=== PATIENT | male | born 1940 | race Caucasian/White ===

== ENCOUNTER 2016-09-18 14:18 | Observation (INO) ==
[2016-09-18] MEDS ORDERED: ONDANSETRON 4 MG/2 ML VIAL IV PRN (14:30)
[2016-09-18] MEDS ORDERED: ACETAMINOPHEN 325 MG TABLET PO PRN (14:30)
--- NOTE | 2016-09-18 16:37 | Ultrasound Report ---
Exam: Carotid ultrasound Date: 09/18/2016 Comparison: None Technique: Duplex scans of the carotid and vertebral arteries using B-mode/Goldman scale imaging and Doppler spectral analysis and color flow. Reason: Subacute infarction Findings: The right ICA measures 4.6 mm in diameter and the left ICA measures 4.4 mm in diameter. Color-flow documented in the visualized arteries. The peak systolic velocities are as follows: Right CCA: 80.7 cm/s Right ICA: 212.0 cm/s Right ECA: 145.4 cm/s Left CCA: 93.7 cm/s Left ICA: 100.6 cm/s Left ECA: 145.8 cm/s The peak systolic ICA/CCA velocity ratios are as follows: 2.6 on the right and 1.1 on the left. Antegrade flow is present in both vertebral arteries. Impression:[50-69% stenosis in right ICA. Less than 50% stenosis in left ICA with heterogeneous plaque formation. Antegrade flow in both vertebral arteries.] The Society of Radiologists in Ultrasound consensus conference criteria was used. The Ultrasound images were captured and stored. PROCEDURE INTERPRETED AT [facility] DEPARTMENT OF RADIOLOGY Final Report Signed by: Dr. Arabella Conley
[2016-09-18] MEDS: SODIUM CHLORIDE 0.9% 1,000 ML IV SCH (17:34)
--- NOTE | 2016-09-18 17:34 | Family Practice History&Phys ---
Assessment and Plan (1) Paresthesia of left upper extremity Status: Acute Assessment and plan: For something something we will get neurology in the morning on the MRI morning as well. Checking lab tonight Current Visit: Yes (2) CVA (cerebral vascular accident) Status: Acute Assessment and plan: 417 7: As noted above we will get lab and neurology involved. Continuing on current medications Current Visit: Yes (3) HTN (hypertension) Status: Chronic Assessment and plan: 09/18/2016: Stable at present Current Visit: Yes Qualifiers: Hypertension type: essential hypertension Qualified Code(s): I10 - Essential (primary) hypertension (4) Hypercholesterolemia Status: Chronic Assessment and plan: 09/18/2016: Check lipids outpatient Current Visit: Yes (5) COPD (chronic obstructive pulmonary disease) Status: Chronic Current Visit: Yes Qualifiers: COPD type: unspecified COPD Qualified Code(s): J44.9 - Chronic obstructive pulmonary disease, unspecified (6) Insomnia Status: Chronic Current Visit: Yes Qualifiers: Insomnia type: primary Qualified Code(s): F51.01 - Primary insomnia (7) Dementia Status: Chronic Current Visit: Yes History of Present Illness Chief complaint: paresthesias to left side History of present illness: Mr. Smith is a 76 year old male Well-known to me. He came in complaining of some left hand and forearm weakness which actually started approximately 2 days ago. It never got better and he was concerned that it may be a stroke. Stated that he was working all all more this Sunday and he got very weak, which was a continuation of general weakness from what may have been a viral illness 20+ days ago. He was working O a lawnmower this Sunday when most of this occurred and his son states that he is just not gotten any better. The numbness and weakness is mostly in the third fourth and fifth digits and at the wrist and slightly in the form. We did do a CT scan today as noted and I am planning on MRI tomorrow. he is alert and oriented I do not appreciate any cranial nerve deficits nor does he have any difficulty with swallowing or coughing. He is very alert and oriented no slurred speech she is right-handed dominant. Patient denies any visual changes, diplopia and he has conjugate gaze. Home Medications Medication Instructions Recorded Confirmed Type Aspirin [Ecotrin] 81 mg PO DAILY 09/18/16 09/18/16 History Atenolol 50 mg PO BID 09/18/16 09/18/16 History Budesonide/Formoterol 160-4.5 2 puffs PO BID 09/18/16 09/18/16 History [Symbicort 160-4.5] Butalb/Acetaminophen/Caffeine 1 each PO Q6HR 09/18/16 09/18/16 History [Grfwsw-Cjsdfebt-Ugia 50-325-40] Montelukast Sodium 10 mg PO DAILY 09/18/16 09/18/16 History Omeprazole 20 mg PO DAILY 09/18/16 09/18/16 History Sertraline [Zoloft] 50 mg PO BEDTIME 09/18/16 09/18/16 History Simvastatin 40 mg PO DAILY 09/18/16 09/18/16 History clonazePAM [Klonopin] 1 tablet PO DAILY 09/18/16 09/18/16 History hydroCHLOROthiazide 12.5 mg PO DAILY 09/18/16 09/18/16 History [Hydrochlorothiazide] Allergies Allergy/AdvReac Type Severity Reaction Status Date / Time amlodipine [From Norvasc] Allergy Unknown Unknown/Unable Verified 09/18/16 16:53 to obtain lisinopril Allergy Unknown Unknown/Unable Verified 09/18/16 16:53 to obtain sulfamethoxazole Allergy Unknown Unknown/Unable Verified 09/18/16 16:35 [From Bactrim] to obtain tramadol [From Ultram] Allergy Unknown Unknown/Unable Verified 09/18/16 16:53 to obtain trimethoprim [From Bactrim] Allergy Unknown Unknown/Unable Verified 09/18/16 16: 35 to obtain - Constitutional Constitutional: Present: as per HPI - EENT Nose, mouth and throat: Absent: dysphagia, neck mass - Cardiovascular Cardiovascular: Absent: chest pain at rest, palpitations - Respiratory Respiratory: Absent: cough, wheezing - Gastrointestinal Gastrointestinal: Absent: abdominal pain - Genitourinary Genitourinary: Absent: difficulty urinating, nocturia - Neurological Neurological: Present: focal weakness, numbness, paresthesias. Absent: abnormal gait - Psychiatric Psychiatric: Absent: anxiety, difficulty concentrating - Endocrine Endocrine: Absent: cold intolerance Medical,Surgical,& Family Hx - Medical History Cardio: History of: Hypertension Psychological: No history of: Anxiety Disorders, ADHD, Behavior Problems, Bipolar Disorder, Depression, Previous Suicide Attempt, Psychiatric/Substance Abuse Tx, Schizophrenia, Violent Behavior, Psychiatric Problems Neurology: History of: Cerebrovascular Accident Respiratory: History of: COPD Musculoskeletal: History of: Amputation (finger) - Surgical History Thoracic Surgeries: Patient denies;: Organ Transplant, Lobectomy Neurologic Surgeries: Patient denies: Neurologic Surgery HEENT Surgeries: Patient denies: Tonsilectomy & Adenoidectomy - Social History Smoking Status: Smoker, status unknown Frequency of Alcohol Use: Frequently Type of Drug Use: None Exam - Constitutional Vitals: Period Temp Pulse Resp BP Sys/Sargent Pulse Ox Last 24 Hr 98.0 F-98.0 F 57-57 16-20 176-176/77-77 98-98 Exam: Generally well developed gentleman he is alert and oriented at this time, so it is HEENT pupils are equal reactive to light extraocular movements are intact neck is supple trachea midline no signs or symptoms of meningitis patient does have dentures upper and lower Cardiovascular rate is regular no gallop or rub 1/6 systolic ejection murmur Lungs clear bilaterally Abdomen soft nondistended Extremities please see note above patient is weak in his left forearm and hand mainly Results - Labs CBC & BMP: 09/18/16 16:50 09/18/16 16:50 Quality Measures - Stroke Symptom Onset Unknown: No
[2016-09-18 18:06] LABS: Basophils # 0.1 10*3/uL (0.0-0.2); Basophils % 1.5 % (0.0-0.8); Eosinophils # 0.1 10*3/uL (0.0-0.87); Eosinophils % 1.6 % (0.00-10.9); Hematocrit 47.8 VOL% (42.0-52.0); Hemoglobin 15.9 GM/DL (14.0-18.0); Immature Granulocytes % 0.3 %; Immature Granulocytes Absolute 0.02 #; Lymphocytes # 1.3 10*3/uL (1.4-4.0); Lymphocytes % 17.4 % (21.2-54.2); Mean Corpuscular HGB Conc 33.3 GM/DL (32-36); Mean Corpuscular Hemoglobin 28 PG (27-34); Mean Corpuscular Volume 84.6 FL (87-102); Mean Platelet Volume 11.4 FL (9.6-12.0); Monocytes # 0.6 10*3/uL (0.11-0.8); Monocytes % 8.5 % (1.7-12.7); Neutrophils # 5.3 10*3/uL (1.4-7.4); Neutrophils % 70.7 % (38.7-73.9); Platelet Count 165 T/CUMM (130-400); Red Blood Count 5.65 MC/CUMM (3.8-5.5); Red Cell Distribution Width 13.3 % (9.3-17.3); White Blood Count 7.5 T/CUMM (4-12)
--- NOTE | 2016-09-18 18:06 | XRay Report ---
Exam: XR orbits for mri Date: 09/18/2016 4:35 PM Comparison: None Indication: Evaluate for metallic foreign body Technique:[3 view orbits] Findings: No metallic foreign body is identified in the orbital location. Impression: No metallic foreign body is identified in the orbital location. PROCEDURE INTERPRETED AT [facility] DEPARTMENT OF RADIOLOGY Final Report Signed by: Dr. Arabella Conley
[2016-09-18 18:27] LABS: Albumin 3.9 G/DL (3.4-5.0); Bilirubin,Total 0.8 MG/DL (0.2-1.0); Calcium 8.9 MG/DL (8.5-10.1); Magnesium 2.2 MG/DL (1.8-2.4); Osmolality,Calculated 278.3 MOS/KG (273-304); Potassium 3.6 MMOL/L (3.5-5.1); Total Protein 7.4 G/DL (6.4-8.3)
[2016-09-18 18:44] LABS: 25 Hydroxy Vitamin D Total 8.3 NG/ML; Folate 5.8 NG/ML (5.4-24.0)
[2016-09-18 18:54] LABS: Free T4 (Free Thyroxine) 1.11 NG/DL (0.76-1.46); Thyroid Stimulating Hormone 1.3 uIU/ml (0.358-3.74)
[2016-09-18] MEDS ORDERED: SERTRALINE 50 MG TABLET PO SCH (21:00)
[2016-09-18] MEDS: ATENOLOL 50 MG TABLET PO SCH (21:48)
[2016-09-18] MEDS: BUDESONIDE/FORMOTEROL 160-4.5 INHALER 6 GM INH SCH (21:48)
[2016-09-18] MEDS: DOCUSATE SODIUM 100 MG CAPSULE PO SCH (21:48)
[2016-09-18] MEDS ORDERED: clonazePAM 0.5 MG TABLET PO SCH (21:55)
[2016-09-19 07:50] LABS: Risk Ratio 4.81; VLDL CHOLESTEROL 26.8 MG/DL
--- NOTE | 2016-09-19 08:15 | EKG Report ---
Stationary ECG Study [facility] Test Date: 09/19/2016 7:23:18 AM Pat Name: Patricia MERCADO Department: Room: 524 Gender: M [employer]bish [employer] Supervisor: FRANCES : 1940 Requested by: Biju Gomez Order Number: [id number] Reading MD: JORGE COSTA Intervals [place] Rate: 53 P: 57 [place]: 227 QRS: -44 QRSD: 146 T: 48 QT: 455 QTc: 439 Interpretive Statements SINUS BRADYCARDIA WITH FIRST-DEGREE AVB AT 53 BPM MARKED LEFT AXIS DEVIATION RIGHT BUNDLE BRANCH BLOCK Electronically Signed On 09-22-16 16:43:14 CDT by JORGE COSTA [email or web address]
[2016-09-19] MEDS: ATENOLOL 50 MG TABLET PO SCH (08:19)
[2016-09-19] MEDS: BUDESONIDE/FORMOTEROL 160-4.5 INHALER 6 GM INH SCH (08:19)
[2016-09-19] MEDS: DOCUSATE SODIUM 100 MG CAPSULE PO SCH (08:19)
[2016-09-19] MEDS ORDERED: hydroCHLOROthiazide 12.5 MG CAPSULE PO SCH (09:00)
[2016-09-19] MEDS ORDERED: PANTOPRAZOLE 40 MG TABLET PO SCH (09:00)
[2016-09-19] MEDS ORDERED: MONTELUKAST 10 MG TABLET PO SCH (09:00)
[2016-09-19] MEDS ORDERED: ASPIRIN EC 81 MG TABLET PO SCH (09:00)
[2016-09-19] MEDS ORDERED: clonazePAM 0.5 MG TABLET PO SCH (09:00)
--- NOTE | 2016-09-19 10:30 | Magnetic Resonance Report ---
MR head/brain wo con Indication: Subacute infarction. Comparison: CT head 09/18/2016 Technique: Using 1.5 Aranza magnet, multisequence multiplanar MR imaging of the brain was performed without the administration of intravenous contrast. Findings: There is no evidence of restricted diffusion. There is no evidence of acute intracranial hemorrhage, mass, or infarction. Ventricular system demonstrates no evidence of acute pathology. Sagittal T1 sequence demonstrates partially empty sella. Blooming bilaterally present within the basal ganglia suggests small calcifications or hemosiderin deposition. Scattered T2/FLAIR signal hyperintensities are noted bilaterally within the periventricular white matter as well as the bilateral centrum semiovale. These are most compatible with microvascular ischemic changes. The basal cisterns appear patent. The arterial flow voids appear intact. The posterior fossa as well as cerebellum demonstrate no evidence of acute pathology. The orbits and globes demonstrate no evidence of acute pathology. The paranasal sinuses and mastoid air cells demonstrate no evidence of significant mucoperiosteal thickening. The calvarium as well as the soft tissues overlying the calvarium demonstrate no evidence of acute pathology. No unexpected areas of enhancement are demonstrated within the brain, meninges, or orbits. Impression: 1. Generalized atrophy is demonstrated. Bilateral nonspecific areas of increased T2/FLAIR signal within the cerebral white matter are favored to reflect microvascular ischemic disease. No acute intracranial pathology is suggested. 09/19/2016 10:23 AM PROCEDURE INTERPRETED AT [facility] DEPARTMENT OF RADIOLOGY Final Report Signed by: Dr. Felix Saldivar
[2016-09-19] MEDS: SODIUM CHLORIDE 0.9% 1,000 ML IV SCH ×2 (14:52→16:49)
--- NOTE | 2016-09-19 15:28 | Neurology Consult Note ---
History of Present Illness History of present illness: Mr. Smith is a 76 year old right-handed white gentleman admitted to the hospital with left ring and little finger numbness and tingling. He reported that over the weekend he used a lot more and work in the backyard and got really exhausted and extremely tired. He reported that it was hot and humid outside that day. Prior to that he had a stomach virus which he kept for last 1 week. Stated that he worked all day Sunday and he got very weak, which was a continuation of general weakness from what may have been a viral illness 20+ days ago. He was working on a lawAsteelower this Sunday when most of this occurred and his son states that he is just not gotten any better. The numbness and weakness is mostly in the third fourth and fifth digits. Patient denies any visual changes, diplopia and he has conjugate gaze. MRI of the brain reveals no acute pathology. It did show a small vessel disease. Home Medications Medication Instructions Recorded Confirmed Type Aspirin [Ecotrin] 81 mg PO DAILY 09/18/16 09/18/16 History Atenolol 50 mg PO BID 09/18/16 09/18/16 History Budesonide/Formoterol 160-4.5 2 puffs PO BID 09/18/16 09/18/16 History [Symbicort 160-4.5] Butalb/Acetaminophen/Caffeine 1 each PO Q6HR 09/18/16 09/18/16 History [Ghvmsq-Skvmorrj-Ngrs 50-325-40] Montelukast Sodium 10 mg PO DAILY 09/18/16 09/18/16 History Omeprazole 20 mg PO DAILY 09/18/16 09/18/16 History Sertraline [Zoloft] 50 mg PO BEDTIME 09/18/16 09/18/16 History Simvastatin 40 mg PO DAILY 09/18/16 09/18/16 History clonazePAM [Klonopin] 1 tablet PO DAILY 09/18/16 09/18/16 History hydroCHLOROthiazide 12.5 mg PO DAILY 09/18/16 09/18/16 History [Hydrochlorothiazide] Allergies Allergy/AdvReac Type Severity Reaction Status Date / Time amlodipine [From [facility]] Allergy Unknown Unknown/Unable Verified 09/18/16 16:53 to obtain lisinopril Allergy Unknown Unknown/Unable Verified 09/18/16 16:53 to obtain sulfamethoxazole Allergy Unknown Unknown/Unable Verified 09/18/16 16:35 [From Bactrim] to obtain tramadol [From Ultram] Allergy Unknown Unknown/Unable Verified 09/18/16 16:53 to obtain trimethoprim [From Bactrim] Allergy Unknown Unknown/Unable Verified 09/18/16 16: 35 to obtain 12 point system: reviewed and no additional remarkable complaints except as stated Medical,Surgical,& Family Hx - Medical History Cardio: History of: Hypertension Psychological: No history of: Anxiety Disorders, ADHD, Behavior Problems, Bipolar Disorder, Depression, Previous Suicide Attempt, Psychiatric/Substance Abuse Tx, Schizophrenia, Violent Behavior, Psychiatric Problems Neurology: History of: Cerebrovascular Accident Respiratory: History of: COPD Musculoskeletal: History of: Amputation (finger) - Surgical History Thoracic Surgeries: Patient denies;: Organ Transplant, Lobectomy Neurologic Surgeries: Patient denies: Neurologic Surgery HEENT Surgeries: Patient denies: Tonsilectomy & Adenoidectomy - Social History Smoking Status: Smoker, status unknown Frequency of Alcohol Use: Frequently Type of Drug Use: None Exam - Constitutional Vitals: Period Temp Pulse Resp BP Sys/Sargent Pulse Ox Last 24 Hr 97 F-98.0 F 56-63 16-20 129-176/67-84 95-98 Exam: GENERAL: Patient is in no acute distress. NECK: Neck is supple. There is no JVD. No carotid bruits present. No thyroid masses. CVS: First and second heart sounds are normal. There is no S3 present. Regular rate and rhythm. RESPIRATORY: Lungs are clear to auscultation without any rales or rhonchi. ABDOMEN: Soft and non-tender. Bowel sounds are present. There is no hepatosplenomegaly. EXT: There is no palpable edema. Peripheral pulses are present. Skin: No rashes Central Nervous system: General: Alert, awake and Oriented x 3 Speech: Fluent Comprehension: Intact and normal Facial expressions: Normal Cranial Nerves: CN1/Olfactory: Normal CN II/ Optic: Normal, Visual Driver unreliable CN III, and : MARIA R & EOMI CN V: Normal & intact CN VII: face is symmetric CNVIII: Normal CN XI/X/XI/XII: Intact and Normal Motor: Bulk and Tone is normal. Strength in the right 5/5 Strength in the left 5/5 Sensory: Grossly intact for all the modalities of PP, LT and temp sense Reflexes: 1+ and symmetrical Cerebellar function: Normal finger to nose and heel to schulz testing. Toes: Equivocal Gait: Normal heel to heel and toe to toe and tandem walk. Results - Labs CBC & BMP: 09/18/16 16:50 09/18/16 16:50 Assessment and Plan (1) Generalized weakness Status: Acute Assessment and plan: This is likely due to exhaustion and dehydration. No evidence of a stroke on the MRI. 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 It needs further workup as an outpatient Continue aspirin a day We will do nerve conduction study/EMG as an outpatient Thank you for the consult Current Visit: Yes Specialty Discharge - Follow Up or Referrals Follow up with: Luan Garcia MD [Physician] - 2 Weeks (schedule NCS/EMG both UE)
[2016-09-19 16:48] VITALS: BP 149/75
--- NOTE | 2016-09-19 16:53 | Discharge Summary ---
Hospital Course - Hospital Course Hospital Course: Patient seen to the hospital with left arm weakness and tingling particularly along the medial aspect of his forearm and fingers. He has had a history of TIAs in the past. Was admitted the hospital CT and MRI of the head were done which revealed no acute changes at this time. Although the symptoms do not resolve we felt like this can be handled on an outpatient basis and will order set patient up for nerve conduction study. He is stable otherwise Diagnosis - Discharge Diagnosis (1) Paresthesia of left upper extremity Status: Acute (2) CVA (cerebral vascular accident) Status: Ruled-out (3) HTN (hypertension) Status: Chronic (4) Hypercholesterolemia Status: Chronic (5) COPD (chronic obstructive pulmonary disease) Status: Chronic (6) Insomnia Status: Chronic (7) Dementia Status: Chronic Specialty Discharge - Follow Up or Referrals Follow up with: Luan Garcia MD [Physician] - 2 Weeks (schedule NCS/EMG both UE (Will schedule on 09/20/16 and call Danial with information about appointment) ) Biju Weinstein DO [Primary Care Provider] - 10/17/16 1:00 pm (10/17/2016 1pm ) Discharge Plan - Discharge Data Disposition: Disch To Home/Self Care Condition at Discharge: Stable Discharge Diet: advance to your usual diet Activity: resume usual activities as tolerated Hygiene: no restrictions Weight Bearing at Discharge: full weight bearing Driving: no restrictions Contact your physician if you experience:: Shortness of breath - Discharge Medications Continue Aspirin [Ecotrin] 81 mg PO DAILY Budesonide/Formoterol 160-4.5 [Symbicort 160-4.5] 2 puffs PO BID Atenolol 50 mg PO BID Simvastatin 40 mg PO DAILY Sertraline [Zoloft] 50 mg PO BEDTIME Montelukast Sodium 10 mg PO DAILY Omeprazole 20 mg PO DAILY clonazePAM [Klonopin] 1 tablet PO DAILY Butalb/Acetaminophen/Caffeine [Avrgpr-Hjhocvld-Cnbu 50-325-40] 1 each PO Q6HR hydroCHLOROthiazide [Hydrochlorothiazide] 12.5 mg PO DAILY - Follow Up or Referral Follow Up: Luan Garcia MD [Physician] - 2 Weeks (schedule NCS/EMG both UE (Will schedule on 09/20/16 and call Danial with information about appointment) ) Biju Weinstein DO [Primary Care Provider] - 10/17/16 1:00 pm (10/17/2016 1pm ) - Forms/Instructions Exam - Constitutional Vitals: Period Temp Pulse Resp BP Sys/Sargent Pulse Ox Last 24 Hr 97 F-97.9 F 56-63 16-18 129-153/67-84 95-99 Discharge Results Labs on day of discharge: Labs from last 24 hours 09/19/16 09/18/16 09/18/16 06:40 16:50 16:50 WBC RBC Hgb Hct MCV MCH MCHC RDW Plt Count MPV Neut % (Auto) Lymph % (Auto) [place] % (Auto) Eos % (Auto) Baso % (Auto) Neut # (Auto) Lymph # (Auto) [place] # (Auto) Eos # (Auto) Baso # (Auto) Immature Gran % Nucleated RBC % Immature Gran # Nucleated RBCs # Sodium Potassium Chloride Carbon Dioxide Anion Gap BUN Creatinine GFR Calculation BUN/Creatinine Ratio Glucose Calculated Osmolality Calcium Magnesium Total Bilirubin AST ALT Alkaline Phosphatase Total Protein Albumin Globulin Albumin/Globulin Ratio Triglycerides 134 Cholesterol 178 LDL Cholesterol 122.0 VLDL Cholesterol 26.8 HDL Cholesterol 37 L Heart Disease Risk Ratio 4.81 Vitamin B12 318 25-OH Vitamin D Total 8.3 Folate 5.8 Free T4 1.11 TSH 3rd Generation 1.300 09/18/16 09/18/16 16:50 16:50 WBC 7.5 RBC 5.65 H Hgb 15.9 Hct 47.8 MCV 84.6 L MCH 28 MCHC 33.3 RDW 13.3 Plt Count 165 MPV 11.4 Neut % (Auto) 70.7 Lymph % (Auto) 17.4 L [place] % (Auto) 8.5 Eos % (Auto) 1.6 Baso % (Auto) 1.5 H Neut # (Auto) 5.3 Lymph # (Auto) 1.3 L [place] # (Auto) 0.6 Eos # (Auto) 0.1 Baso # (Auto) 0.1 Immature Gran % 0.3 Nucleated RBC % 0.0 Immature Gran # 0.02 Nucleated RBCs # 0.00 Sodium 141 Potassium 3.6 Chloride 106 Carbon Dioxide 24 Anion Gap 14.6 BUN 5 L Creatinine 1.00 GFR Calculation 85 BUN/Creatinine Ratio 5.00 L Glucose 110 H Calculated Osmolality 278.3 Calcium 8.9 Magnesium 2.2 Total Bilirubin 0.80 AST 26 ALT 25 Alkaline Phosphatase 94 Total Protein 7.4 Albumin 3.9 Globulin 3.5 Albumin/Globulin Ratio 1.1 Triglycerides Cholesterol LDL Cholesterol VLDL Cholesterol HDL Cholesterol Heart Disease Risk Ratio Vitamin B12 25-OH Vitamin D Total Folate Free T4 TSH 3rd Generation DS: Provider Date of admission: 09/18/16 15:05 Primary care physician: Biju Weinstein DO Attending physician on admission: Biju Weinstein DO Consults: 09/18/16 14:30 Consult to Case Mgmt/Social Srvs [CONS] Routine Reason for Case Mgmt/Social Srvs: Discharge Planning 09/18/16 14:42 Consult to Physician [CONS] Routine Comment: aly schilling subacute infarct Consulting Provider: Luna Garcia Person Notified: [email or web address] Date Notified: 09/19/16 Time Notified: 09:07 09/18/16 16:46 Consult to Dietitian [CONS] Routine Reason for Dietitian: Other Consult Comment: recent mulitple dental extractions pt reports he hasnt been able to eat Discharging clinician: Biju Weinstein DO
[2016-09-19] MEDS ORDERED: SIMVASTATIN 40 MG TABLET PO SCH (21:00)
== END 2016-09-19 18:45 | disposition home or self-care (01) ==
LOC: N.5E
PROVIDERS: ADMIT Family Medicine; ATTEND Family Medicine